=== PATIENT | female | born 1995 | race Caucasian/White ===

== ENCOUNTER 2018-01-10 05:00 | Emergency (ER) | payer SELFPAY ==
[2018-01-10] MEDS ORDERED: IPRATROPIUM-ALBUTEROL 3 ML NEB INHALATION STA (05:34)
[2018-01-10] MEDS ORDERED: SODIUM CHLORIDE 0.9% 1,000 ML IV STA (05:35)
[2018-01-10] MEDS ORDERED: LORazepam 2 MG/ML INJ IV STA (05:35)
[2018-01-10] MEDS ORDERED: MORPHINE SULFATE 4 MG/ML SYRINGE IV STA (05:35)
[2018-01-10] MEDS ORDERED: RX INFO: IV CONTRAST WAS GIVEN 1 EACH MISC MISCELLANE PRN ×2 (05:35→06:54)
--- NOTE | 2018-01-10 05:37 | ED ---
General Adult HPI - General Source: patient, RN notes reviewed, old records reviewed Mode of arrival: ambulatory Limitations: no limitations <Rodrigo Adhikari - Last Filed: 01/10/18 06:05> <Wade Mckay - Last Filed: 01/10/18 08:48> - General Chief complaint: Upper Respiratory Infection Stated complaint: congestion,chest pain Time Seen by Provider: 01/10/18 05:19 - History of Present Illness Initial comments: This is a 22-year-old female with nonspecific chest pain. Left-sided chest pain. Patient does have history of psychiatric illness. Patient is on off cough and illness for about a month. Patient does admit to increased cough and congestion currently no fevers. Denies trauma. No abdominal pain and nausea vomiting diarrhea. No recent travel history no sick contacts pain is left- sided worse when she touches her chest wall, worse she takes a deep breath ( Rodrigo Adhikari) - Related Data Home Medications Medication Instructions Recorded Confirmed Citalopram Hydrobromide [CeleXA] 20 mg PO DAILY 01/10/18 01/10/18 Divalproex Sodium [Depakote] 500 mg PO BID 01/10/18 01/10/18 Omeprazole 20 mg PO DAILY 01/10/18 01/10/18 Allergies Allergy/AdvReac Type Severity Reaction Status Date / Time Sulfa (Sulfonamide AdvReac Rash/Hives Verified 01/10/18 07:50 Antibiotics) Review of Systems ROS Other: All systems not noted in ROS Statement are negative. <Rodrigo Adhikari - Last Filed: 01/10/18 06:05> ROS Other: All systems not noted in ROS Statement are negative. <Wade Mckay - Last Filed: 01/10/18 08:48> ROS Statement: Those systems with pertinent positive or pertinent negative responses have been documented in the HPI. Past Medical History Past Medical History: No Reported History Additional Past Medical History / Comment(s): IBS, kidney stones, reactive airway disease History of Any Multi-Drug Resistant Organisms: None Reported Additional Past Surgical History / Comment(s): lithotripsyX2 Past Psychological History: Anxiety, Bipolar Smoking Status: Current every day smoker Past Alcohol Use History: Occasional Past Drug Use History: None Reported <Rodrigo Adhikari - Last Filed: 01/10/18 06:05> General Exam Limitations: no limitations General appearance: alert, in no apparent distress, anxious Head exam: Present: atraumatic, normocephalic, normal inspection Eye exam: Present: normal appearance, PERRL, EOMI. Absent: scleral icterus, conjunctival injection, periorbital swelling ENT exam: Present: normal exam, mucous membranes moist Neck exam: Present: normal inspection. Absent: tenderness, meningismus, lymphadenopathy Respiratory exam: Present: normal lung sounds bilaterally. Absent: respiratory distress, wheezes, rales, rhonchi, stridor Cardiovascular Exam: Present: regular rate, normal rhythm, normal heart sounds. Absent: systolic murmur, diastolic murmur, rubs, gallop, clicks GI/Abdominal exam: Present: soft, normal bowel sounds. Absent: distended, tenderness, guarding, rebound, rigid Extremities exam: Present: normal inspection, full ROM, normal capillary refill. Absent: tenderness, pedal edema, joint swelling, calf tenderness Back exam: Present: normal inspection Neurological exam: Present: alert, oriented X3, CN II-XII intact Psychiatric exam: Present: normal affect, normal mood Skin exam: Present: warm, dry, intact, normal color. Absent: rash <Rodrigo Adhikari - Last Filed: 01/10/18 06:05> Vital Signs 01/10/18 01/10/18 01/10/18 05:07 05:43 05:51 Temperature 99.1 F Pulse Rate 84 87 87 Respiratory 18 Rate Blood Pressure 117/63 O2 Sat by Pulse 99 Oximetry 01/10/18 01/10/18 07:12 08:00 Temperature 97.7 F Pulse Rate 94 93 Respiratory 16 16 Rate Blood Pressure 115/55 93/57 O2 Sat by Pulse 97 99 Oximetry EKG Findings - EKG Comments: EKG Findings:: EKG shows normal sinus rhythm rate of 75, OH 136, QRS 84, qrs 426 <Rodrigo Adhikari - Last Filed: 01/10/18 06:05> Medical Decision Making <Rodrigo Adhikari - Last Filed: 01/10/18 06:05> - Lab Data Result diagrams: 01/10/18 06:48 01/10/18 06:48 <Wade Mckay - Last Filed: 01/10/18 08:48> - Medical Decision Making CAT scan of the chest is negative for pulmonary embolism. There is no evidence of pneumonia. There are some pulmonary nodules, which patient will follow up with as an outpatient. I have given her a referral for pulmonology for this. She understands the importance of this follow-up. (Wade Mckay) - Lab Data Lab Results 01/10/18 01/10/18 01/10/18 Range/Units 06:48 06:48 06:48 WBC 6.8 (3.8-10.6) k/uL RBC 5.19 (3.80-5.40) m/uL Hgb 15.7 (11.4-16.0) gm/dL Hct 46.1 H (34.0-46.0) % MCV 88.9 (80.0-100.0) fL MCH 30.3 (25.0-35.0) pg MCHC 34.1 (31.0-37.0) g/dL RDW 12.2 (11.5-15.5) % Plt Count 319 (150-450) k/uL Neutrophils % 58 % Lymphocytes % 34 % Monocytes % 4 % Eosinophils % 2 % Basophils % 1 % Neutrophils # 3.9 (1.3-7.7) k/uL Lymphocytes # 2.3 (1.0-4.8) k/uL Monocytes # 0.3 (0-1.0) k/uL Eosinophils # 0.2 (0-0.7) k/uL Basophils # 0.0 (0-0.2) k/uL PT (9.0-12.0) sec INR (<1.2) APTT (22.0-30.0) sec D-Dimer (<0.60) mg/L FEU Sodium 143 (137-145) mmol/L Potassium 3.9 (3.5-5.1) mmol/L Chloride 104 (98-107) mmol/L Carbon Dioxide 27 (22-30) mmol/L Anion Gap 12 mmol/L BUN 13 (7-17) mg/dL Creatinine 0.56 (0.52-1.04) mg/dL Est GFR (CKD-EPI)AfAm >90 (>60 ml/min/1.73 sqM) Est GFR (CKD-EPI)NonAf >90 (>60 ml/min/1.73 sqM) Glucose 108 H (74-99) mg/dL Calcium 9.4 (8.4-10.2) mg/dL Magnesium 2.0 (1.6-2.3) mg/dL Total Bilirubin 0.4 (0.2-1.3) mg/dL AST 19 (14-36) U/L ALT 21 (9-52) U/L Alkaline Phosphatase 54 (38-126) U/L Total Creatine Kinase 68 (30-135) U/L CK-MB (CK-2) 0.4 (0.0-2.4) ng/mL CK-MB (CK-2) Rel Index 0.6 Troponin I <0.012 (0.000-0.034) ng/mL Total Protein 7.7 (6.3-8.2) g/dL Albumin 4.6 (3.5-5.0) g/dL Lipase 167 (23-300) U/L 01/10/18 Range/Units 06:48 WBC (3.8-10.6) k/uL RBC (3.80-5.40) m/uL Hgb (11.4-16.0) gm/dL Hct (34.0-46.0) % MCV (80.0-100.0) fL MCH (25.0-35.0) pg MCHC (31.0-37.0) g/dL RDW (11.5-15.5) % Plt Count (150-450) k/uL Neutrophils % % Lymphocytes % % Monocytes % % Eosinophils % % Basophils % % Neutrophils # (1.3-7.7) k/uL Lymphocytes # (1.0-4.8) k/uL Monocytes # (0-1.0) k/uL Eosinophils # (0-0.7) k/uL Basophils # (0-0.2) k/uL PT 10.2 (9.0-12.0) sec INR 1.0 (<1.2) APTT 24.1 (22.0-30.0) sec D-Dimer <0.17 (<0.60) mg/L FEU Sodium (137-145) mmol/L Potassium (3.5-5.1) mmol/L Chloride (98-107) mmol/L Carbon Dioxide (22-30) mmol/L Anion Gap mmol/L BUN (7-17) mg/dL Creatinine (0.52-1.04) mg/dL Est GFR (CKD-EPI)AfAm (>60 ml/min/1.73 sqM) Est GFR (CKD-EPI)NonAf (>60 ml/min/1.73 sqM) Glucose (74-99) mg/dL Calcium (8.4-10.2) mg/dL Magnesium (1.6-2.3) mg/dL Total Bilirubin (0.2-1.3) mg/dL AST (14-36) U/L ALT (9-52) U/L Alkaline Phosphatase (38-126) U/L Total Creatine Kinase (30-135) U/L CK-MB (CK-2) (0.0-2.4) ng/mL CK-MB (CK-2) Rel Index Troponin I (0.000-0.034) ng/mL Total Protein (6.3-8.2) g/dL Albumin (3.5-5.0) g/dL Lipase (23-300) U/L Disposition <Rodrigo Ahdikari - Last Filed: 01/10/18 06:05> Time of Disposition: 08:46 <Wade Mckay - Last Filed: 01/10/18 08:48> Clinical Impression: Bronchitis Disposition: HOME SELF-CARE Condition: Good Instructions: Upper Respiratory Infection (ED) Referrals: Mariluz Harman MD [Primary Care Provider] - 1-2 days Conrad North MD [STAFF PHYSICIAN] - 1-2 days
[2018-01-10 07:02] LABS: Basophils % (A) 1 %; Eosinophils # (A) 0.2 k/uL (0-0.7); Eosinophils % (A) 2 %; HCT 46.1 % (34.0-46.0); HGB 15.7 gm/dL (11.4-16.0); Lymphocytes # (A) 2.3 k/uL (1.0-4.8); Lymphocytes % (A) 34 %; MCH 30.3 pg (25.0-35.0); MCHC 34.1 g/dL (31.0-37.0); MCV 88.9 fL (80.0-100.0); Mean Platelet Volume 7.4; Monocytes # (A) 0.3 k/uL (0-1.0); Monocytes % (A) 4 %; Neutrophils # (A) 3.9 k/uL (1.3-7.7); Neutrophils % (A) 58 %; Platelet Count 319 k/uL (150-450); RBC 5.19 m/uL (3.80-5.40); RDW 12.2 % (11.5-15.5); WBC 6.8 k/uL (3.8-10.6)
[2018-01-10 07:23] LABS: ALT 21 U/L (9-52); AST 19 U/L (14-36); Albumin 4.6 g/dL (3.5-5.0); Alkaline Phosphatase 54 U/L (38-126); Anion Gap 12 mmol/L; Blood Urea Nitrogen 13 mg/dL (7-17); Calcium 9.4 mg/dL (8.4-10.2); Carbon Dioxide 27 mmol/L (22-30); Chloride 104 mmol/L (98-107); Glucose 108 mg/dL (74-99); Lipase 167 U/L (23-300); Potassium 3.9 mmol/L (3.5-5.1); Sodium 143 mmol/L (137-145); Total Bilirubin 0.4 mg/dL (0.2-1.3); Total Protein 7.7 g/dL (6.3-8.2)
[2018-01-10 07:26] VITALS: RESP 16
[2018-01-10 07:26] LABS: Creatine Kinase 68 U/L (30-135)
[2018-01-10 07:29] LABS: D-Dimer <0.17 mg/L FEU (<0.60); Partial Thromboplastin Time 24.1 sec (22.0-30.0); Prothrombin Time 10.2 sec (9.0-12.0)
[2018-01-10 07:39] LABS: Creatine Kinase MB 0.4 ng/mL (0.0-2.4); Troponin I <0.012 ng/mL (0.000-0.034)
[2018-01-10 08:08] VITALS: TEMP 97.7
--- NOTE | 2018-01-10 08:12 | CT ---
EXAMINATION TYPE: CT angio chest DATE OF EXAM: 01/10/2018 COMPARISON: NONE HISTORY: 22-year-old female complaining of left sided chest pain, cough, SOB TECHNIQUE: Contiguous axial scanning of the chest performed with IV Contrast, patient injected with 1 00 mL of Omnipaque 350. Coronal/sagittal MIP reconstructions performed. CT DLP: 374 mGycm Automated exposure control for dose reduction was used. FINDINGS: Heart is normal size with trace basilar pericardial fluid. Aorta is normal caliber with conventional arch vessel branching anatomy. There is some anterior mediastinal soft tissue density compatible with residual thymus. No thoracic l ymphadenopathy by CT size criteria. Satisfactory opacification of the pulmonary arterial system with a October surgery motion artifacts in the lower lungs. Mild diffuse bronchial wall thickening. No consolidation or pleural effusion. There is a 5 mm subpleural pulmonary nodule peripheral right lower lobe axial image 80 and a 7 mm sub pleural pulmonary nodule peripheral left lower lobe axial image 82. Visualized upper abdomen shows no gross abnormality. Bones: No osseous process. IMPRESSION: 1. RESPIRATORY MOTION ARTIFACT IN THE LOWER LUNGS. NO PULMONARY EMBOLUS IDENTIFIED. 2. MILD DIFFUSE BRONCHIAL WALL THICKENING COULD REPRESENT BRONCHITIS OR ASTHMA. 3. A COUPLE PULMONARY NODULES MEASURING UP TO 7 MM. ALMOST CERTAINLY BENIGN IN A PATIENT THIS AGE, PO SSIBLY SECONDARY TO PRIOR GRANULOMATOUS DISEASE. CLINICALLY CORRELATE. A 6-12 MONTH FOLLOW-UP LOW-DOS E CT CHEST CAN BE CONSIDERED TO REEVALUATE.
[2018-01-10 09:13] VITALS: BP 102/61; PULSE 87
== END 2018-01-10 09:13 | disposition home or self-care (01) ==
LOC: EC 05:00
DX: J45.909 Unspecified asthma, uncomplicated (principal); R91.8 Other nonspecific abnormal finding of lung field; F31.9 Bipolar disorder, unspecified; F17.200 Nicotine dependence, unspecified, uncomplicated; Z79.899 Other long term (current) drug therapy; Z88.2 Allergy status to sulfonamides
CPT/HCPCS: 36415; 94640; 93005; 85379; 80053; 82550; 82553; 83690; 83735; 84484; 85025; 85610; 85730; 71275; 99284; 96374; 96375; 96361 ×2; J2060; J2270; Q9967

== ENCOUNTER 2019-04-14 21:52 | Emergency (ER) | payer BC ==
[2019-04-14 22:01] VITALS: BP 116/63; PULSE 58; RESP 20; TEMP 98.3
[2019-04-14 22:48] LABS: Appearance,Urine Cloudy (Clear); Bilirubin,Urine Negative (Negative); Blood,Urine Negative (Negative); Color,Urine Yellow; Glucose,Urine (UA) Negative (Negative); Ketones,Urine Negative (Negative); Leukocyte Esterase,Urine Negative (Negative); Mucus,Urine Rare /hpf; Nitrite,Urine Negative (Negative); PH, Urine 6.5 (5.0-8.0); Protein,Urine Negative (Negative); RBC,Urine <1 /hpf (0-5); Specific Gravity,Urine 1.015 (1.001-1.035); Squamous Epithelial Cell,Urine 6 /hpf (0-4); WBC,Urine 1 /hpf (0-5)
[2019-04-14 22:50] LABS: Basophils % (A) 0 %; Eosinophils # (A) 0.2 k/uL (0-0.7); Eosinophils % (A) 3 %; HCT 45.6 % (34.0-46.0); HGB 14.9 gm/dL (11.4-16.0); Lymphocytes % (A) 31 %; MCH 29.9 pg (25.0-35.0); MCHC 32.7 g/dL (31.0-37.0); MCV 91.4 fL (80.0-100.0); Mean Platelet Volume 6.9; Monocytes # (A) 0.4 k/uL (0-1.0); Monocytes % (A) 6 %; Neutrophils # (A) 3.8 k/uL (1.3-7.7); Neutrophils % (A) 59 %; Platelet Count 358 k/uL (150-450); RBC 4.99 m/uL (3.80-5.40); RDW 12.4 % (11.5-15.5); WBC 6.5 k/uL (3.8-10.6)
[2019-04-14 22:59] LABS: ALT 13 U/L (9-52); AST 17 U/L (14-36); African American GFR (CKD) >90 (>60 ml/min/1.73 sqM); Albumin 4.6 g/dL (3.5-5.0); Alkaline Phosphatase 56 U/L (38-126); Amylase 62 U/L (30-110); Anion Gap 8 mmol/L; Blood Urea Nitrogen 12 mg/dL (7-17); Calcium 9.4 mg/dL (8.4-10.2); Carbon Dioxide 29 mmol/L (22-30); Chloride 103 mmol/L (98-107); Glucose 77 mg/dL (74-99); Lipase 133 U/L (23-300); Potassium 3.6 mmol/L (3.5-5.1); Sodium 140 mmol/L (137-145); Total Bilirubin 0.3 mg/dL (0.2-1.3); Total Protein 7.5 g/dL (6.3-8.2)
[2019-04-15] MEDS ORDERED: ACETAMINOPHEN TAB 325 MG TAB PO STA (00:10)
--- NOTE | 2019-04-15 00:10 | CT ---
EXAM: CT Abdomen and Pelvis With Intravenous Contrast CLINICAL HISTORY: ITS.REASON CT Reason: RLQ pain TECHNIQUE: Axial computed tomography images of the abdomen and pelvis with intravenous contrast. CTDI is 5.2, 4.3 mGy and DLP is 261.3, 115.8 mGy- cm. This CT exam was performed using one or more of the following dose reduction techniques: automated exposure control, adjustment of the mA and/or kV according to patient size, and/or use of iterative reconstruction technique. Delayed imaging was performed. COMPARISON: None. FINDINGS: Lung bases: Unremarkable. No mass. No consolidation. ABDOMEN: Liver: Unremarkable. No mass. Gallbladder and bile ducts: Unremarkable. No calcified stones. No ductal dilation. Pancreas: Unremarkable. No mass. No ductal dilation. Spleen: Unremarkable. No splenomegaly. Adrenals: Unremarkable. No mass. Kidneys and ureters: Somewhat irregular enhancement of the kidneys. No hydronephrosis. Stomach and bowel: Moderate colonic stool burden. No obstruction. No mucosal thickening. PELVIS: Appendix: No findings to suggest acute appendicitis. Bladder: Unremarkable. No mass. Reproductive: Unremarkable as visualized. ABDOMEN and PELVIS: Intraperitoneal space: Unremarkable. No free air. No significant fluid collection. Bones/joints: No acute fracture. No dislocation. Soft tissues: Unremarkable. Vasculature: Unremarkable. No abdominal aortic aneurysm. Lymph nodes: Unremarkable. No enlarged lymph nodes. IMPRESSION: 1. No evidence of acute appendicitis. 2. Somewhat irregular enhancement of the kidneys. This could be seen with pyelonephritis in the appropriate clinical scenario. 3. Moderate colonic stool burden. Recommend correlation for constipation.
--- NOTE | 2019-04-15 00:38 | ED ---
Abdominal Pain HPI - General Source: patient Mode of arrival: ambulatory Limitations: no limitations <Darling Cutler - Last Filed: 04/15/19 03:13> <Kailey Espinal - Last Filed: 04/15/19 22:16> - General Chief Complaint: Abdominal Pain Stated Complaint: RLQ Pain Time Seen by Provider: 04/14/19 22:05 - History of Present Illness Initial Comments: 23-year-old female who denies past medical history presenting today for chief complaint of right lower abdominal pain ongoing for the past 7 days. Patient states she has had right lower abdominal pain that is near the level of the umbilicus. Patient states that it comes and goes she states is sharp in nature. Patient states that at times it doesn't seem to radiate towards her back. Patient states she does have a history of kidney stones with previous litho tripsy. Patient denies any hematuria dysuria or urgency frequency. Patient states this does feel different than her stones. Patient denies any pain with sex, vaginal discharge. Patient denies any fever chills or sweats. Remaining ROS (-) Upon arrival patient appears well no signs of acute distress. (Darling Cutler) - Related Data Home Medications Medication Instructions Recorded Confirmed Citalopram Hydrobromide [CeleXA] 20 mg PO DAILY 01/10/18 04/14/19 Divalproex Sodium [Depakote] 500 mg PO BID 01/10/18 04/14/19 Albuterol Inhaler [Ventolin Hfa 1 - 2 puff INHALATION RT-Q6H PRN 04/14/19 04/14/19 Inhaler] Allergies Allergy/AdvReac Type Severity Reaction Status Date / Time Sulfa (Sulfonamide AdvReac Rash/Hives Verified 01/10/18 07:50 Antibiotics) Review of Systems ROS Other: All systems not noted in ROS Statement are negative. <Darling Cutler - Last Filed: 04/15/19 03:13> ROS Other: All systems not noted in ROS Statement are negative. <Kailey Espinal - Last Filed: 04/15/19 22:16> ROS Statement: Those systems with pertinent positive or pertinent negative responses have been documented in the HPI. Past Medical History Past Medical History: No Reported History Additional Past Medical History / Comment(s): IBS, kidney stones, reactive airway disease History of Any Multi-Drug Resistant Organisms: None Reported Additional Past Surgical History / Comment(s): lithotripsy X2 Past Psychological History: Anxiety, Bipolar Smoking Status: Current every day smoker Past Alcohol Use History: Rare Past Drug Use History: None Reported <Darling Cutler - Last Filed: 04/15/19 03:13> General Exam Limitations: no limitations <Darling Cutler - Last Filed: 04/15/19 03:13> - General Exam Comments Initial Comments: General: The patient is awake and alert, in no distress, and does not appear acutely ill. Eye: +3 mm pupils are equal, round and reactive to light, extra-ocular move ments are intact. No nystagmus. There is normal conjunctiva bilaterally. No signs of icterus. Ears, nose, mouth and throat: There are moist mucous membranes and no oral lesions. Neck: The neck is supple, there is no tenderness or JVD. Cardiovascular: There is a regular rate and rhythm. No murmur, rub or gallop is appreciated. Respiratory: Lungs are clear to auscultation, respirations are non-labored, breath sounds are equal. No wheezes, stridor, rales, or rhonchi. Gastrointestinal: Soft, non-distended, right mid abdomen tenderness, abdomen without masses or organomegaly noted. There is no rebound or guarding present. No CVA tenderness. Bowel sounds are unremarkable. pelvic: no external lesions, rash and mucosa pink with rugated appears scant amount of thin white discharge in the vault. No odor. No cervical motion or adnexal tenderness. Musculoskeletal: Normal ROM, no tenderness. Strength 5/5. Sensation intact. Pulses equal bilaterally 2+. Neurological: A&O x 3. CN II-XII intact, There are no obvious motor or sensory deficits. Coordination appears grossly intact. Speech is normal. Skin: Skin is warm and dry and no rashes or lesions are noted. Psychiatric: Cooperative, appropriate mood & affect, normal judgment. (Darling Cutler) Course Vital Signs 04/14/19 21:57 Temperature 98.3 F Pulse Rate 58 L Respiratory 20 Rate Blood Pressure 116/63 O2 Sat by Pulse 99 Oximetry Medical Decision Making - Lab Data Result diagrams: 04/14/19 22:41 04/14/19 22:41 <Darling Cutler - Last Filed: 04/15/19 03:13> - Lab Data Result diagrams: 04/14/19 22:41 04/14/19 22:41 <Kailey Espinal - Last Filed: 04/15/19 22:16> - Medical Decision Making 23-year-old female presenting for right mid to lower abdominal pain. Patient states that sharp in nature. Patient states has been ongoing for weeks. Patient denies urinary symptoms. Patient denies vaginal discharge. Scant amount on pelvic exam. No adnexal tenderness. Patient refuses treatment for STI. She states she will wait for results. No evidence of PID on examination. No specific pain at McBurney's point. Patient does not show any rigidity guarding or signs of peritoneal irritation. Laboratory studies revealed a leukocytosis. Remaining labs within normal limits. Urinalysis unremarkable. CT of the abdomen reveals no acute process. I discussed how the kidneys were enhanced on CT imaging studies however this is nonspecific. No evidence of large kidney stone. Patient refused pelvic US stating the pain is no lower. Patient is requesting discharge. This time do feel patient is stable for discharge with outpatient primary care follow-up. Return parameters were discussed at length the patient prior to discharge. I did discuss the case with attending provider Dr. Espinal who is agreeable with care plan at this time. (Darling Cutler) I was available for consultation in the emergency department. The history and physical exam were done by the midlevel provider. I was consulted for this patient's care. I reviewed the case with the midlevel provider and based on their presentation of the patient, I agree with the assessment, medical decision making and plan of care as documented. Chart was dictated using [employer] dictation software. Attempts were made to correct any dictation errors however some typographical errors may persist. (Kailey Espinal) - Lab Data Lab Results 04/14/19 04/14/19 04/14/19 Range/Units 22:40 22:40 22:41 WBC (3.8-10.6) k/uL RBC (3.80-5.40) m/uL Hgb (11.4-16.0) gm/dL Hct (34.0-46.0) % MCV (80.0-100.0) fL MCH (25.0-35.0) pg MCHC (31.0-37.0) g/dL RDW (11.5-15.5) % Plt Count (150-450) k/uL Neutrophils % % Lymphocytes % % Monocytes % % Eosinophils % % Basophils % % Neutrophils # (1.3-7.7) k/uL Lymphocytes # (1.0-4.8) k/uL Monocytes # (0-1.0) k/uL Eosinophils # (0-0.7) k/uL Basophils # (0-0.2) k/uL Sodium 140 (137-145) mmol/L Potassium 3.6 (3.5-5.1) mmol/L Chloride 103 (98-107) mmol/L Carbon Dioxide 29 (22-30) mmol/L Anion Gap 8 mmol/L BUN 12 (7-17) mg/dL Creatinine 0.60 (0.52-1.04) mg/dL Est GFR (CKD-EPI)AfAm >90 (>60 ml/min/1.73 sqM) Est GFR (CKD-EPI)NonAf >90 (>60 ml/min/1.73 sqM) Glucose 77 (74-99) mg/dL Calcium 9.4 (8.4-10.2) mg/dL Total Bilirubin 0.3 (0.2-1.3) mg/dL AST 17 (14-36) U/L ALT 13 (9-52) U/L Alkaline Phosphatase 56 (38-126) U/L Total Protein 7.5 (6.3-8.2) g/dL Albumin 4.6 (3.5-5.0) g/dL Amylase 62 (30-110) U/L Lipase 133 (23-300) U/L Urine Color Yellow Urine Appearance Cloudy H (Clear) Urine pH 6.5 (5.0-8.0) Ur Specific Brady 1.015 (1.001-1.035) Urine Protein Negative (Negative) Urine Glucose (UA) Negative (Negative) Urine Ketones Negative (Negative) Urine Blood Negative (Negative) Urine Nitrite Negative (Negative) Urine Bilirubin Negative (Negative) Urine Urobilinogen 2.0 (<2.0) mg/dL Ur Leukocyte Esterase Negative (Negative) Urine RBC <1 (0-5) /hpf Urine WBC 1 (0-5) /hpf Ur Squamous Epith Cells 6 H (0-4) /hpf Urine Mucus Rare H (None) /hpf Urine HCG, Qual Not Detected (Not Detectd) Trichomonas Ag (Rapid) (Negative) 04/14/19 04/15/19 Range/Units 22:41 00:52 WBC 6.5 (3.8-10.6) k/uL RBC 4.99 (3.80-5.40) m/uL Hgb 14.9 (11.4-16.0) gm/dL Hct 45.6 (34.0-46.0) % MCV 91.4 (80.0-100.0) fL MCH 29.9 (25.0-35.0) pg MCHC 32.7 (31.0-37.0) g/dL RDW 12.4 (11.5-15.5) % Plt Count 358 (150-450) k/uL Neutrophils % 59 % Lymphocytes % 31 % Monocytes % 6 % Eosinophils % 3 % Basophils % 0 % Neutrophils # 3.8 (1.3-7.7) k/uL Lymphocytes # 2.0 (1.0-4.8) k/uL Monocytes # 0.4 (0-1.0) k/uL Eosinophils # 0.2 (0-0.7) k/uL Basophils # 0.0 (0-0.2) k/uL Sodium (137-145) mmol/L Potassium (3.5-5.1) mmol/L Chloride (98-107) mmol/L Carbon Dioxide (22-30) mmol/L Anion Gap mmol/L BUN (7-17) mg/dL Creatinine (0.52-1.04) mg/dL Est GFR (CKD-EPI)AfAm (>60 ml/min/1.73 sqM) Est GFR (CKD-EPI)NonAf (>60 ml/min/1.73 sqM) Glucose (74-99) mg/dL Calcium (8.4-10.2) mg/dL Total Bilirubin (0.2-1.3) mg/dL AST (14-36) U/L ALT (9-52) U/L Alkaline Phosphatase (38-126) U/L Total Protein (6.3-8.2) g/dL Albumin (3.5-5.0) g/dL Amylase (30-110) U/L Lipase (23-300) U/L Urine Color Urine Appearance (Clear) Urine pH (5.0-8.0) Ur Specific Brady (1.001-1.035) Urine Protein (Negative) Urine Glucose (UA) (Negative) Urine Ketones (Negative) Urine Blood (Negative) Urine Nitrite (Negative) Urine Bilirubin (Negative) Urine Urobilinogen (<2.0) mg/dL Ur Leukocyte Esterase (Negative) Urine RBC (0-5) /hpf Urine WBC (0-5) /hpf Ur Squamous Epith Cells (0-4) /hpf Urine Mucus (None) /hpf Urine HCG, Qual (Not Detectd) Trichomonas Ag (Rapid) Negative (Negative) Disposition Is patient prescribed a controlled substance at d/c from ED?: No Time of Disposition: 00:38 <Darling Cutler L - Last Filed: 04/15/19 03:13> <Kailey Espinal P - Last Filed: 04/15/19 22:16> Clinical Impression: Abdominal pain Disposition: HOME SELF-CARE Condition: Good Instructions (If sedation given, give patient instructions): Abdominal Pain (ED) Additional Instructions: Please use medication as discussed. Please follow-up with family doctor in the next 2 days. Please return to emergency room if the symptoms increase or worsen or for any other concerns--persistent pain, fever. Referrals: Mariluz Harman MD [Primary Care Provider] - 1-2 days
[2019-04-16 15:43] LABS: C. trachomatis,PCR Negative (Neg,Equiv); Chlamydia trachomatis Source Vagina
[2019-04-16 15:47] LABS: N. gonorrhoeae,PCR Negative (Neg,Equiv); Neisseria Source Vagina
== END 2019-04-15 01:00 | disposition home or self-care (01) ==
LOC: EC 21:52
DX: R10.31 Right lower quadrant pain (principal); D72.829 Elevated white blood cell count, unspecified; J45.909 Unspecified asthma, uncomplicated; F31.9 Bipolar disorder, unspecified; F41.9 Anxiety disorder, unspecified; F17.200 Nicotine dependence, unspecified, uncomplicated; Z88.2 Allergy status to sulfonamides; Z79.899 Other long term (current) drug therapy; Z87.442 Personal history of urinary calculi; Z98.890 Other specified postprocedural states; Z53.20 Procedure and treatment not carried out because of patient's decision for unspecified reasons
CPT/HCPCS: 36415; 80053; 82150; 83690; 85025; 81001; 81025; 87808; 87491; 87591; 87070; 87205; 74177; 99284; Q9967